=== PATIENT | female | born 1940 | race Caucasian/White ===

== ENCOUNTER → 2020-08-29 | Outpatient (CLI) | payer MEDICARE ==
[~2020-08-29] MED LIST: VISIPAQUE 320 MG/ML, 150ML BOTTLE ONE
[2020-08-29 11:11] LABS: CREATININE 0.91 mg/dL (0.55-1.02)
== END | disposition home or self-care (01) ==
LOC: CVU 09:31
PROVIDERS: ATTEND Internal Medicine Cardiovascular Disease
DX: I65.23 Occlusion and stenosis of bilateral carotid arteries (principal); E78.5 Hyperlipidemia, unspecified; I11.0 Hypertensive heart disease with heart failure; I35.0 Nonrheumatic aortic (valve) stenosis; I50.33 Acute on chronic diastolic (congestive) heart failure; I25.10 Atherosclerotic heart disease of native coronary artery without angina pectoris; N95.9 Unspecified menopausal and perimenopausal disorder; E66.01 Morbid (severe) obesity due to excess calories; M62.08 Separation of muscle (nontraumatic), other site; K80.20 Calculus of gallbladder without cholecystitis without obstruction; Z95.4 Presence of other heart-valve replacement
CPT/HCPCS: 36415; 71275; 74174; 82565; 93880; Q9967

== ENCOUNTER → 2020-10-01 | Outpatient (CLI) | payer MEDICARE ==
[~2020-10-01] MED LIST changes: +ATOR40TA PO; +CHLO25TA PEG; +CLOP75TA PO; +GABA100C PO; +SPIR25TA5 PO; -VISIPAQUE 320 MG/ML, 150ML BOTTLE ONE
== END | disposition home or self-care (01) ==
LOC: CVU 10:23
PROVIDERS: ATTEND Internal Medicine Cardiovascular Disease
DX: Z01.810 Encounter for preprocedural cardiovascular examination (principal); I65.29 Occlusion and stenosis of unspecified carotid artery; I05.8 Other rheumatic mitral valve diseases; I05.0 Rheumatic mitral stenosis; Z95.4 Presence of other heart-valve replacement
CPT/HCPCS: 93306